=== PATIENT | female | born 1965 | race Caucasian/White ===

== ENCOUNTER 2018-11-15 11:45 | Emergency (ER) | payer SELFPAY ==
[~2018-11-15] VITALS: Ht 162.6 cm; Wt 70.3 kg
[~2018-11-15 11:45] MED LIST: AMOX-358 PO; AMOX250C PO; ATEN25TA PO; CLON0.253 PO; CLON0.5T3 PO; GLIM2TAB PO; IBUP-30 PO; LISI5TAB PO; LOVA20TA2 PO; LSNP10T PO; MTF500T PO; MTP25TSR PO; MUPI22OI TOP; OMEG1CAP51 PO
--- OUTSIDE RECORDS SUMMARY | 2018-11-15 11:51 | XMS REPORT | Clinical Summary ---
Author Author [facility] Organization [facility] Address Unknown Phone Unavailable Care Team Providers Care Food And Beverage Intern Name Role Phone Tony Thao MD Unavailable Christi Chung APRN PCP Unavailable Mayo Billingsley MD Unavailable Ally Angel APRN Unavailable Do Clarke Unavailable Unavailable Aura Paez RN Unavailable Unavailable Source Comments Some departments are not documenting in the electronic medical record. If you do not see the information that you expected, contact Release of Information in the Health Information Management department at [phone] for further assistance in locating additional records.[facility] Allergies Comments Active Allergy Reactions Severity Noted Date Meperidine HIVES Medium 10/27/2015 Medications End Date Status Medication Sig Dispensed Refills Start Date Active atenolol (TENORMIN) 100 Take by 0 mg tablet mouth. take 100 mg in the morning and 50 mg (1/2 tab) in the evening Active glimepiride (AMARYL) 2 mg Take 2 mg by 0 tablet mouth twice daily. Active metFORMIN (GLUCOPHAGE) Take 500 mg 0 500 mg tablet by mouth twice daily with meals. Active lovastatin(+) (MEVACOR) Take 20 mg by 0 20 mg tablet mouth daily with dinner. Active lisinopril (PRINIVIL; Take 20 mg by 0 ZESTRIL) 20 mg tablet mouth daily. Active citalopram (CELEXA) 20 mg Take 20 mg by 0 tablet mouth at bedtime daily. Active clonazePAM (KLONOPIN) 1 Take 1 mg by 0 mg tablet mouth twice daily. Active ibuprofen (MOTRIN) 200 mg Take 600 mg 0 tablet by mouth daily as needed for Pain. Status Hospital, Clinic, or Ordered Dose Route Frequency Start End Date Other Facility Date Administered Medication Active sodium chloride 0.9 % 1000 mL IV CONTINUOUS 10/31/19 infusion 16 Active Problems Problem Noted Date Liver laceration 10/27/2015 Transaminitis 10/27/2015 Hyperbilirubinemia 10/27/2015 Common bile duct dilatation 10/27/2015 Family History Medical History Relation Name Comments Diabetes Father Cancer Maternal breast cancer Grandmother Relation Name Status Comments Father Maternal Grandmother Social History Date Tobacco Use Types Packs/Day Years Used Current Every Day Smoker Cigarettes 1 15 Smokeless Tobacco: Never Used Alcohol Use Drinks/Week oz/Week Comments No 0 Standard 0.0 drinks or equivalent Sex Assigned at Date Recorded Not on file Industry Job Start Date Occupation Not on file Not on file Not on file Travel End Travel History Travel Start No recent travel history available. Last Filed Vital Signs Time Taken Vital Sign Reading 11/24/2015 10:21 AM CDT Blood Pressure 92/66 11/24/2015 10:21 AM CDT Pulse 82 11/24/2015 10:00 AM CDT Temperature 37 C (98.6 F) - Respiratory Rate - 11/24/2015 10:21 AM CDT Oxygen Saturation 96% - Inhaled Oxygen - Concentration 11/24/2015 7:36 AM CDT Weight 75.3 kg (166 lb) 11/24/2015 7:36 AM CDT Height 162.6 cm (5' 4") 11/24/2015 7:36 AM CDT Body Mass Index 28.49 Plan of Treatment Health Maintenance Due Date Last Done Comments PHYSICAL (COMPREHENSIVE) 01/18/1972 EXAM HIV SCREENING 01/18/1980 DTAP/TDAP VACCINES (1 - 1983 Tdap) CERVICAL CANCER SCREENING 1995 BREAST CANCER SCREENING 2005 COLORECTAL CANCER 2015 SCREENING SHINGLES RECOMBINANT 2015 VACCINE (1 of 2) INFLUENZA VACCINE 04/14/2019 HEPATITIS C SCREENING Completed 10/27/2015 Implants Device Identifier Shelf Expiration Date Model / Serial / Lot Implanted Type Area Manufactur er [id number] / N/A / [id number] Stnt Isreal 10fr 5fr 5cm 210cm MARIBEL Implanted: Qty: 1 on 10/27/2015 by GRP:Mayo West MD Results Not on filefrom Last 3 Months Advance Directives Patient has advance care planning documents, and code status on file. For more information, please contact: [facility] [address] [place] [address] Date Inactivated Comments Code Status Date Activated 10/28/2015 8:01 PM Full Code 10/27/2015 3:24 AM Provider has discussed Code Status Yes w/Patient or Family? 10/27/2015 3:24 AM Full Code 10/27/2015 1:18 AM Provider has discussed Code Status No, more discussion w/Patient or Family? needed
--- OUTSIDE RECORDS SUMMARY | 2018-11-15 11:51 | XMS REPORT | Continuity of Care Document ---
Author Organization Unknown Address Unknown Allergies Active Description Code Type Severity Reaction Onset Reported/Identified Relationship to Patient Clinical Status Yes No Known Drug Allergies [id number] Drug Allergy Unknown N/A 05/05/2012 Medications There is no data. Problems Date Dx Coded Attending Type Code Diagnosis Diagnosed By 09/17/2012 Ot 250.00 DIAB RO WO COMPL, TYPE II OR UNSPEC TY 09/17/2012 Ot 300.00 ANXIETY STATE NOS 09/17/2012 Ot 305.1 TOBACCO USE DISORDER 09/17/2012 Ot 401.9 HYPERTENSION NOS 09/17/2012 Ot 414.01 CORONARY ATHEROSCLEROSIS OF [place] CORON 09/17/2012 Ot 785.1 PALPITATIONS 09/17/2012 Ot 794.30 ABN CARDIOVASC STUDY NOS 09/17/2012 Ot V58.69 OTH MED,LT, CURRENT USE 12/01/2012 Ot 300.00 ANXIETY STATE NOS 12/01/2012 Ot 785.1 PALPITATIONS 08/25/2015 Ot 300.00 08/25/2015 Ot 785.1 08/25/2015 Ot 300.00 08/25/2015 Ot 785.1 08/25/2015 SANTOS JORDAN DO Ot F17.210 NICOTINE DEPENDENCE, CIGARETTES, UNCOMPL 08/25/2015 SANTOS JORDAN DO Ot S51.851A OPEN BITE OF RIGHT FOREARM, INITIAL ENCO 08/25/2015 SANTOS JORDAN DO Ot S60.511A ABRASION OF RIGHT HAND, INITIAL ENCOUNTE 08/25/2015 SANTOS JORDAN DO Ot S60.512A ABRASION OF LEFT HAND, INITIAL ENCOUNTER 08/25/2015 SANTOS JORDAN DO Ot W50.3XXA ACCIDENTAL BITE BY ANOTHER PERSON, INITI 08/25/2015 SANTOS JORDAN DO Ot Y92.10 [facility] RESIDENTIAL INSTITUTION PLACE 08/25/2015 SANTOS JORDAN DO Ot Y99.0 CIVILIAN ACTIVITY DONE FOR INCOME OR PAY 08/25/2015 SANTOS JORDAN DO Ot Z23 ENCOUNTER FOR IMMUNIZATION 03/03/2016 Ot 300.00 ANXIETY STATE NOS 03/03/2016 Ot 785.1 PALPITATIONS Procedures There is no data. Results There is no data. Encounters ACCT No. Visit Date/Time Discharge Status Pt. Type Provider Facility Loc./Unit Complaint [id number] 08/25/2015 22:09:00 08/25/2015 22:55:00 DIS Emergency SANTOS JORDAN DO [facility] ER HUMAN BITE TO R ARM [id number] 12/02/2012 14:30:00 Document Registration [id number] 09/17/2012 11:51:00 Document Registration [id number] 09/02/2012 14:07:00 Document Registration
--- NOTE | 2018-11-15 12:25 | ED Lower Extremity ---
General Chief Complaint: Lower Extremity Stated Complaint: FELL - RIGHT LEG PAIN Nursing Triage Note: PT AMB TO RM 8 WITH COMPLAINT OF RIGHT LEG PAIN AFTER FALLING YESTERDAY. PT STATES SHE HAS CONSTANT PAIN WHEN STANDING. Nursing Sepsis Screen: No Definite Risk Source: patient Exam Limitations: no limitations History of Present Illness Date Seen by Provider: November 15, 2018 Time Seen by Provider: 12:07 Initial Comments Here with report of right leg pain about the right knee and to a lesser extent to the right ankle. States that she slipped coming down the steps after the rain yesterday at home. Does have an abrasion to the anterior portion of the knee. States tetanus is not up-to-date. Reports pain to the lateral aspect of the right knee and posterior. Ankle hurts a little but really it hurts more in her right knee area when moving her right ankle and that pain is to the lateral aspect as well. She can stand but states it hurts to the lateral and posterior aspect of the right knee when standing. Onset: yesterday Severity: mild Pain/Injury Location: right knee, right ankle Method of Injury: fell Modifying Factors: Improves With Immobilization; Worse With Movement; Improves With Rest Allergies and Home Medications Allergies Coded Allergies: No Known Drug Allergies (Unverified , 05/05/12) Home Medications Amoxicillin/Potassium Clav 1 Each Tablet, 1 EACH PO BID Prescribed by: SANTOS JORDAN on 08/25/152236 Atenolol 25 Mg Tablet, 2 TAB PO DAILY, (Reported) Clonazepam 0.25 Mg/Tab Tab.rapdis, 0.25 MG PO TID, (Reported) Glimepiride 2 Mg Tablet, 2 MG PO DAILY, (Reported) Ibuprofen 200 Mg Tablet, 200 MG PO Q4H PRN, (Reported) Lisinopril 5 Mg Tablet, 5 MG PO DAILY, (Reported) Lovastatin 20 Mg Tablet, 20 MG PO DAILY WITH SUPPER, (Reported) Metformin Hcl 500 Mg Tablet, 500 MG PO BID WITH MEALS, (Reported) Mupirocin 22 Gm Oint...g., 0 TOP TID Prescribed by: SANTOS JORDAN on 08/25/152236 [place]-3 Fatty Acids/Fish Oil 1 Each Capsule, 4,000 MG PO DAILY, (Reported) Patient Home Medication List Home Medication List Reviewed: Yes Review of Systems Constitutional: see HPI; No chills, No fever Respiratory: no symptoms reported Cardiovascular: no symptoms reported Musculoskeletal: see HPI, joint pain, muscle pain Skin: lesions; No rash Psychiatric/Neurological: No Symptoms Reported Past Lymcpnj-Kbngth-Cetclt Hx Past Med/Social Hx: Reviewed Nursing Past Med/Soc Hx Patient Social History Alcohol Use: Denies Use Recreational Drug Use: No Smoking Status: Never a Smoker Recent Foreign Travel: No Contact w/Someone Who Travel: No Recent Infectious Disease Expo: No Recent Hopitalizations: No Immunizations Up To Date Tetanus Booster (TDap): More than 5yrs Past Medical History Surgeries: Yes (CARDIAC CATH) Cardiac Respiratory: No Cardiac: Yes High Cholesterol, Hypertension Neurological: No Reproductive Disorders: No Gastrointestinal: No Musculoskeletal: No Endocrine: Yes Diabetes, Non-Insulin dep Cancer: No Psychosocial: Yes Anxiety Integumentary: No Blood Disorders: No Family Medical History Reviewed Nursing Family Hx No Pertinent Family Hx Physical Exam Vital Signs Vital Signs - First Documented 11/15/18 12:05 Temp 97.8 Pulse 80 Resp 16 B/P (MAP) 149/84 (105) Pulse Ox 80 O2 Delivery Room Air Capillary Refill : Less Than 3 Seconds Height, Weight, BMI Height: 5'4.00" Weight: 155lbs. oz. 70.238196wg; 30.89 BMI Method:Stated General Appearance: WD/WN, no apparent distress Cardiovascular: regular rate, rhythm, no murmur Respiratory: lungs clear, normal breath sounds Knees: right knee pain, right knee soft tissue tenderness, right knee swelling (mild questionable swelling to the lateral compartment), right knee other (pain to the lateral aspect at the fibular head.) Ankles: right ankle non-tender, right ankle normal inspection, right ankle normal range of motion, right ankle no evidence of injury Feet: right foot non-tender, right foot normal inspection, right foot normal range of motion, right foot no evidence of injury Neurologic/Psychiatric: alert, oriented x 3 Skin: warm/dry, other (2 x 2 centimeter abrasion to the anterior knee) Progress/Results/Core Measures Results/Orders My Orders Orders - PAOLA NAPIER MD Knee, Right, 3 Views (11/15/18 12:15) Dipht,Pertuss(Acell),Tet Adult (Boostrix (11/15/18 12:30) Medications Given in ED Current Medications Medications Dose Ordered Sig/Corey Route Start Time Stop Time Status Last Admin Dose Admin Diphtheria/ Tetanus/Acell Pertussis 0.5 ml ONCE ONCE IM 11/15/18 12:30 11/15/18 12:31 DC 11/15/18 12:34 0.5 ML Vital Signs/I&O 11/15/18 12:05 Temp 97.8 Pulse 80 Resp 16 B/P (MAP) 149/84 (105) Pulse Ox 80 O2 Delivery Room Air Blood Pressure Mean: 105 Progress Progress Note : Progress Note Seen and evaluated. X-ray right knee ordered. Tetanus updated. Monitor patient. 1324: Jeremías wrap to right knee. Ice pack given. Discharged home with return precautions. Patient verbalize understanding instructions and agreement with plan. Diagnostic Imaging Diagonstic Imaging: Xray Plain Films/CT/US/NM/MRI: knee Comments [facility] [place] NAME: TAZ VILLARREAL [facility] REC#: [id number] PT STATUS: REG ER : 1965 PHYSICIAN: PAOLA NAPIER MD ADMIT DATE: 11/15/18/ER Draft Date of Exam:11/15/18 KNEE, RIGHT, 3 VIEWS Indication: Right knee pain. Time of exam: 12:37 PM Three views of the right knee were obtained. Alignment is normal. Joint spaces are well maintained. The articular surfaces are smooth. No fracture, dislocation or effusion is seen. Impression: No acute abnormality is detected. Dictated on workstation # [id number] Dict: 11/15/18 1258 Trans: 11/15/18 1301 [facility] [id number] Interpreted by: HIMA BOGGS MD Electronically signed by: Departure Impression Primary Impression: Strain of right knee Qualified Codes: S86.911A - Strain of unspecified muscle(s) and tendon(s) at lower leg level, right leg, initial encounter Additional Impressions: Contusion of right knee Qualified Codes: S80.01XA - Contusion of right knee, initial encounter Abrasion of right knee Qualified Codes: S80.211A - Abrasion, right knee, initial encounter Disposition: HOME, SELF-CARE Condition: Stable Departure-Patient Inst. Decision time for Depature: 13:25 Referrals: [facility] (PCP/Family) Primary Care Physician Patient Instructions: Knee Sprain (DC), Skin Abrasions (DC), Contusion (DC) Add. Discharge Instructions: All discharge instructions reviewed with patient and/or family. Voiced understanding. You may take ibuprofen 600 mg every 8 hours as needed for pain. You may also take Tylenol/acetaminophen 1000 mg every 8 hours as needed for pain. Use Jeremías wrap to affected area as needed. You may use ice packs to the affected area 20 minutes per hour as needed. Return for worse pain, fever, swelling, weakness, breathing problems or other concerns as needed. Work/School Note: Work Release Form Date Seen in the Emergency Department: November 15, 2018 Return to Work: November 15, 2018 Other Restrictions Listed Below: No lifting over 5 lbs or bending for 2 days. PAOLA NAPIER MD November 15, 2018 12:25
[2018-11-15] MEDS ORDERED: TETANUS,DIPTH,PERTUSS P/F (BOOSTRIX) 0.5 ML VIAL IM ONE (12:30)
--- NOTE | 2018-11-15 13:00 | NUR ---
report recieved from layton solano
--- NOTE | 2018-11-15 13:02 | Diagnostic Imaging Report ---
Indication: Right knee pain. Time of exam: 12:37 PM Three views of the right knee were obtained. Alignment is normal. Joint spaces are well maintained. The articular surfaces are smooth. No fracture, dislocation or effusion is seen. Impression: No acute abnormality is detected. Dictated by: Dictated on workstation # [id number]
[2018-11-15 13:33] VITALS: BP 149/84
== END 2018-11-15 13:34 | disposition home or self-care (01) ==
LOC: EDUNIT# 11:45 → ER 11:47
DX: S86.911A Strain of unspecified muscle(s) and tendon(s) at lower leg level, right leg, initial encounter (principal); E78.00 Pure hypercholesterolemia, unspecified; I10 Essential (primary) hypertension; E11.9 Type 2 diabetes mellitus without complications; F41.9 Anxiety disorder, unspecified; Z23 Encounter for immunization; Z79.4 Long term (current) use of insulin; Z95.9 Presence of cardiac and vascular implant and graft, unspecified; W18.49XA Other slipping, tripping and stumbling without falling, initial encounter; Y92.009 Unspecified place in unspecified non-institutional (private) residence as the place of occurrence of the external cause
CPT/HCPCS: 73562; 90715